=== PATIENT | female | born 1990 | race African-American/Black ===

== ENCOUNTER 2016-08-08 20:28 | Emergency (ER) | payer OTHER ==
[2016-08-08] MEDS ORDERED: HYDROcod/ACETAM 5/325 MG TABLET PO STA (22:09)
[2016-08-08] MEDS ORDERED: HYDROcod/ACETAM 5/325 MG TABLET ONE (22:13)
== END 2016-08-08 22:18 | disposition home or self-care (01) ==
DX: R07.89 Other chest pain (principal); K21.9 Gastro-esophageal reflux disease without esophagitis
CPT/HCPCS: 36415; 71020; 80053; 83690; 84443; 85025; 93005; 93010; 99282; 99284; A9270